=== PATIENT | male | born 1965 | race Caucasian/White ===

== ENCOUNTER 2024-11-15 18:16 | Inpatient (IN) | payer BC ==
[~2024-11-15] VITALS: Ht 188 cm; Wt 90.5 kg
[2024-11-15] VITALS: BP 116/77; PULSE 105; RESP 19; TEMP 36.78072; O2SAT 96
[2024-11-15] MEDS: SODIUM CHLORIDE 0.9% (SEPSIS BOLUS) IV ONE (18:40)
[2024-11-15 18:53] LABS: HEMATOCRIT. 51.6 % (42.0-52.0); HEMOGLOBIN. 17.4 g/dL (14.0-18.0); MEAN CORPUSCULAR HEMOGLOBIN 31.3 pg (28.0-32.0); MEAN CORPUSCULAR HGB CONC 33.8 g/dL (31.0-37.0); MEAN CORPUSCULAR VOLUME 92.6 fL (80.0-94.0); PLATELET 184 x1000/uL (130-400); RED BLOOD CELL COUNT 5.57 mill/uL (4.7-6.1); RED CELL DISTRIBUTION WIDTH 13.6 % (11.6-14.6); WHITE BLOOD COUNT 12.1 x1000/uL (4.5-11.0)
[2024-11-15 18:54] LABS: DIFFERENTIAL COMMENT 1
[2024-11-15 19:02] LABS: PROTHROMBIN TIME 11.6 sec (9.6-11.0)
[2024-11-15 19:04] LABS: PLATELET ESTIMATE NORMAL
[2024-11-15 19:05] LABS: CHLORIDE 105 mEq/L (98-107); SODIUM 138 mEq/L (136-145)
[2024-11-15 19:06] LABS: CALCIUM 9.5 mg/dL (8.7-10.4); CARBON DIOXIDE 23 mEq/L (21-32); TROPONIN I HIGH SENSITIVITY 25 ng/L (3.0-53)
[2024-11-15 19:11] LABS: CREATININE 1.2 mg/dL (0.6-1.3); GLUCOSE 118 mg/dL (70-105); UREA NITROGEN BLOOD 16 mg/dL (9-23)
[2024-11-15 19:13] LABS: ALANINE AMINOTRANSFERASE 34 IU/L (10-49); ALBUMIN 4.6 g/dL (3.2-4.8); ASPARTATE AMINOTRANSFERASE 32 IU/L (<34); BILIRUBIN DIRECT 0.5 mg/dL (<=3.0); BILIRUBIN TOTAL 1.7 mg/dL (0.1-1.0)
[2024-11-15 22:56] VITALS: BP 121/83; PULSE 103; RESP 17; TEMP 36.9184
[2024-11-15] MEDS ORDERED: IOHEXOL-300 100 ML BOTTLE ONE (23:55)
[2024-11-15] MEDS: ONDANSETRON HCL 4MG/2ML INJ IV PRN (23:56)
[2024-11-15] MEDS: DEXT 5%/0.45% NACL 1000ML 1,000 ML IV SCH (23:56)
[2024-11-16 03:02] LABS: CLARITY URINE CLEAR (CLEAR); COLOR URINE YELLOW (YELLOW); GLUCOSE URINE NEGATIVE (NEGATIVE); KETONES URINE 1+ (NEGATIVE); LEUKOCYTE ESTERASE URINE NEGATIVE (NEGATIVE); NITRITE URINE NEGATIVE (NEGATIVE); OCCULT BLOOD URINE 1+ (NEGATIVE); PROTEIN URINE NEGATIVE (NEGATIVE); SPECIFIC GRAVITY URINE 1.055 (1.005-1.030)
[2024-11-16 04:00] VITALS: BP 93/55; PULSE 96; RESP 18; TEMP 37.503; O2SAT 96
[2024-11-16] MEDS ORDERED: ZOLPIDEM TARTRATE 5MG TABLET PO PRN (04:00)
[2024-11-16 04:35] LABS: SQUAMOUS EPITHELIAL CELL URINE NONE SEEN /lpf (RARE/1+)
[2024-11-16 04:36] LABS: BACTERIA URINE NONE SEEN; WBC URINE 0-2 /hpf (0-2)
[2024-11-16] MEDS: DIPHENHYDRAMINE 50MG/ML VIAL IV NR (06:07)
[2024-11-16 08:00] VITALS: BP 105/58; PULSE 85; RESP 18; TEMP 36.55848; O2SAT 99
[2024-11-16 08:06] LABS: *AMPHETAMINES SCREEN URINE NEGATIVE (NEGATIVE); *BARBITURATES SCREEN URINE NEGATIVE (NEGATIVE); *BENZODIAZEPINES SCREEN URINE NEGATIVE (NEGATIVE); *COCAINE SCREEN URINE NEGATIVE (NEGATIVE); CANNABINOID URINE SCREEN NEGATIVE (NEGATIVE); ECSTASY MDMA SCREEN URINE NEGATIVE (NEGATIVE); METHADONE URINE SCREEN NEGATIVE (NEGATIVE); OPIATES URINE SCREEN NEGATIVE (NEGATIVE); PHENCYCLIDINE URINE SCREEN NEGATIVE (NEGATIVE)
[2024-11-16 12:00] VITALS: BP_SYST 110; BP_SYST 121; BP_DIAS 62; PULSE 80; PULSE 81; RESP 19; TEMP 36.44736; O2SAT 99
[2024-11-16] MEDS: MECLIZINE 25MG TABLET PO PRN (13:55)
[2024-11-16 16:00] VITALS: BP 118/65; PULSE 76; RESP 19; TEMP 36.72516; O2SAT 99
[2024-11-16] MEDS: MECLIZINE 25MG TABLET PO SCH (20:35)
[2024-11-16 20:40] VITALS: BP 112/71; PULSE 91; RESP 19; TEMP 36.78072; O2SAT 97
[2024-11-17 00:50] VITALS: BP 131/91; PULSE 99; RESP 19; TEMP 36.33624; O2SAT 98
[2024-11-17 04:00] VITALS: BP 128/84; PULSE 99; RESP 19; TEMP 36.114; O2SAT 100
[2024-11-17 08:00] VITALS: BP 130/66; PULSE 80; RESP 19; TEMP 36.6696; O2SAT 99
[2024-11-17] MEDS ORDERED: GADOTERATE MEGLUMINE 5 MMOL/10 ML VIAL IV ONE (10:15)
[2024-11-17 12:00] VITALS: BP 125/84; PULSE 84; RESP 20; TEMP 37.00296
[2024-11-17 16:21] VITALS: BP 125/84; PULSE 84; TEMP 98.6; O2SAT 99
== END 2024-11-17 16:45 | disposition home or self-care (01) | DRG 392 ==
LOC: ER 18:16 → EDBEDREQ 20:10 → EDBEDREQTM 20:29 → EDBEDREQSVC 20:29 → 8EST 23:08
PROVIDERS: ADMIT Internal Medicine; ATTEND Internal Medicine
DX: K52.9 Noninfective gastroenteritis and colitis, unspecified (principal); E86.0 Dehydration; K44.9 Diaphragmatic hernia without obstruction or gangrene; K57.30 Diverticulosis of large intestine without perforation or abscess without bleeding; Z90.49 Acquired absence of other specified parts of digestive tract
CPT/HCPCS: 36415; 70553; 71045; 74177; 80048; 80076; 80305; 81003; 83605; 84484; 85025; 93005; 99291; A9577; J1200; J2405; J7030; J8597; Q9967